=== PATIENT | female | born 1955 | race African-American/Black ===

== ENCOUNTER 2017-01-18 22:13 | Emergency (ER) | payer SELFPAY ==
[~2017-01-18] VITALS: Ht 165.1 cm; Wt 72.6 kg
[~2017-01-18 22:13] MED LIST: BACTRIM-DS1 EA ORAL; IBUPROFEN600 MG ORAL; PHENAZOPYRIDIN100 MG ORAL
[2017-01-18] MEDS ORDERED: NKM (23:18)
[2017-01-19] MEDS ORDERED: Ketorolac 60mg Inj IM ONE
[2017-01-19 00:12] LABS: APPEARANCE,URINE CLEAR; KETONES,URINE NEGATIVE (NEGATIVE); LEUKOCYTE ESTERASE ,URINE 1+ (NEGATIVE); NITRITE,URINE NEGATIVE (NEGATIVE); PH,URINE 7 (4.5-8.0); PROTEIN,URINE 1+ (NEGATIVE); UROBILINOGEN,URINE NORMAL MG/DL (0.0-1.0)
[2017-01-19 00:24] LABS: BACTERIA,URINE FEW /HPF; RBC,URINE 15-20 /HPF (0 - 2); SQUAMOUS EPITHELIAL CELL,UR MODERATE /LPF (NONE/OCC)
[2017-01-19 00:25] LABS: AMORPHOUS SEDIMENT,UR MODERATE /LPF
[2017-01-19] MEDS ORDERED: IBUPROFEN600 MG ORAL (00:49)
[2017-01-19] MEDS ORDERED: ACETAMINOPHEN-1 EAC1 ORAL (00:49)
[2017-01-19 00:53] VITALS: BP 131/77
--- NOTE | 2017-01-19 03:55 | Emergency Room Report ---
History of Present Illness General Chief Complaint: Pain Source: Patient Present Illness HPI Patient presents with complaints of left lower suprapubic abdominal discomfort Patient reports that she has history of fibroids Denies any fevers or chills Denies any dysuria frequency Denies any chest pain or shortness of breath Patient has had ultrasounds revealing the discomfort Rates the pain is 4/10 intermittent Denies any vaginal discharge Allergies: Coded Allergies: No Known Allergies (Unverified , 09/20/13) Patient History Past Medical History: see triage record Pertinent Family History: none Reviewed Nursing Documentation: PMH: Agreed, PSxH: Agreed Nursing Documentation-PMH Past Medical History: No Stated History Review of Systems All Other Systems: negative except mentioned in HPI Physical Exam Vital Signs Date Time Temp Pulse Resp B/P Pulse Ox O2 Delivery O2 Flow Rate FiO2 01/18/17 23:11 98.1 79 16 131/77 98 Room Air Sp02 EP Interpretation: reviewed, normal General Appearance: well appearing, no apparent distress Head: normocephalic, atraumatic Eyes: bilateral eye EOMI, bilateral eye PERRL ENT: hearing grossly normal, normal pharynx, TMs + canals normal, uvula midline Neck: full range of motion, supple, no meningismus, no bony tend Respiratory: lungs clear, normal breath sounds, no rhonchi, no respiratory distress, no retraction, no accessory muscle use Cardiovascular #1: normal peripheral pulses, regular rate, rhythm, no edema, no gallop, no JVD, no murmur Gastrointestinal: normal bowel sounds, soft, no mass, no organomegaly, non- distended, no guarding, no hernia, no pulsatile mass, no rebound, tenderness - Subjectively points to the left lower suprapubic region, no obvious rebound however and nonreproducible on palpation, Genitourinary: no CVA tenderness Musculoskeletal: normal inspection Neurologic: oriented x3, responsive, meter maintenance person III-XII nml as tested, motor strength/ tone normal, sensory intact Psychiatric: mood/affect normal Skin: normal color, no rash, warm/dry, palpation normal Lymphatic: normal inspection, no adenopathy Medical Decision Making Diagnostic Impression: Primary Impression: uterine fibroids ER Course Given the patient's history of uterine fibroids other differentials such as ovarian cyst ovarian torsion or entertained Urine sample at this time is negative for obvious infectious pathology appears to have been contaminated Patient's pain and presentation does not clinically appear to be in line with ovarian torsion patient rested very comfortably in the ER and stable for close outpatient followup Labs Test 01/18/17 23:50 Urine Color Pale yellow Urine Appearance Clear Urine pH 7 (4.5-8.0) Urine Specific [place] 1.005 (1.005-1.035) Urine Protein 1+ (NEGATIVE) Urine Glucose (UA) Negative (NEGATIVE) Urine Ketones Negative (NEGATIVE) Urine Occult Blood 4+ (NEGATIVE) Urine Nitrite Negative (NEGATIVE) Urine Bilirubin Negative (NEGATIVE) Urine Urobilinogen Normal MG/DL (0.0-1.0) Urine Leukocyte Esterase 1+ (NEGATIVE) Urine RBC 15-20 /HPF (0 - 2) Urine WBC 2-4 /HPF (0 - 2) Urine Squamous Epithelial Cells Moderate /LPF (NONE/OCC) Urine Amorphous Sediment Moderate /LPF (NONE) Urine Bacteria Few /HPF (NONE) Last Vital Signs Date Time Temp Pulse Resp B/P Pulse Ox O2 Delivery O2 Flow Rate FiO2 01/19/17 00:53 98.1 75 16 131/77 98 Room Air Status: improved Disposition: HOME, SELF-CARE Condition: Improved Scripts Acetaminophen With Codeine (T#3) (TYLENOL #3 TAB*) Y Tab 1 TAB ORAL Q8H Y for For Pain, #10 TAB Prov: LEVI MEYER D.O. 01/19/17 Ibuprofen* (MOTRIN*) 600 Mg Tablet 600 MG ORAL Q8H Y for For Pain, #30 TAB 0 Refills Prov: LEVI MEYER D.O. 01/19/17 Referrals: NON PHYSICIAN (PCP) Patient Instructions: Abdominal Pain, Adult, Uterine Fibroids Additional Instructions: Patient is provided with the discharge instructions notified to follow up with primary doctor in the next 2-3 days otherwise return to the er with any worsening symptoms. Please note that this report is being documented using [employer] technology. This can lead to erroneous entry secondary to incorrect interpretation by the dictating instrument. LEVI MEYER D.O. Jan 19, 2017 03:55
== END 2017-01-19 00:53 | disposition home or self-care (01) ==
LOC: EMR 23:31
DX: D25.9 Leiomyoma of uterus, unspecified (principal)
CPT/HCPCS: 81003; 96372; 99284

== ENCOUNTER 2017-09-19 20:26 | Emergency (ER) | payer BC ==
[~2017-09-19] VITALS: Ht 165.1 cm; Wt 68.5 kg
[~2017-09-19 20:26] MED LIST changes: +ACETAMINOPHEN-1 EAC1 ORAL; +NKM
[2017-09-19] MEDS ORDERED: IBUPROFEN600 MG ORAL (21:03)
[2017-09-19] MEDS ORDERED: NORCO 5-325 TA1 EACH ORAL (21:03)
[2017-09-19 21:07] VITALS: BP 104/63
--- NOTE | 2017-09-20 10:27 | Diagnostic Imaging Report ---
Indication: PAIN Technique: 3 views left foot Comparison: none Findings: No acute fractures. No dislocations. Unusual of the fifth proximal interphalangeal joint. Remaining joint spaces are normal Impression: No acute bony trauma Unusual widening of the fifth proximal interphalangeal joint, may indicate prior osteotomy. Correlate with surgical history
--- NOTE | 2017-09-20 12:34 | Diagnostic Imaging Report ---
Indication: PAIN Technique: 3 views of the left ankle Comparison: none Findings: There is an oblique fracture of the distal fibula which is nondisplaced. No tibial fracture demonstrated. There is minimal lateral soft tissue swelling. Small plantar spur noted. Impression: Positive for nondisplaced distal fibular fracture. Review of the electronic medical record indicates this was recognized by the ER physician
--- NOTE | 2017-09-21 06:46 | Emergency Room Report ---
History of Present Illness General Chief Complaint: Lower Extremity Injury Source: Patient Present Illness HPI 62-year-old female presents ED complaining of left ankle pain. States that tonight she rolled her ankle at home. Denies hitting her head or LOC. Patient persistent pain and swelling to the left ankle. Denies any other injuries. Pain is throbbing, 10 out of 10, nonradiating. Patient is unable to bear. No other of any relieving factors. Denies any other associated symptoms Allergies: Coded Allergies: No Known Allergies (Unverified , 09/20/13) Patient History Past Medical History: none Past Surgical History: none Pertinent Family History: none Social History: Denies: smoking, alcohol use, drug use Last Menstrual Period: NONE Now: No Immunizations: UTD Reviewed Nursing Documentation: PMH: Agreed, PSxH: Agreed Nursing Documentation-PMH Past Medical History: No Stated History Review of Systems All Other Systems: negative except mentioned in HPI Physical Exam Vital Signs Date Time Temp Pulse Resp B/P (MAP) Pulse Ox O2 Delivery O2 Flow Rate FiO2 09/19/17 20:28 98.1 93 18 104/63 98 Sp02 EP Interpretation: reviewed, normal General Appearance: no apparent distress, alert, GCS 15, non-toxic Head: normocephalic Eyes: bilateral eye normal inspection, bilateral eye PERRL ENT: normal ENT inspection Neck: normal inspection Respiratory: normal inspection Cardiovascular #1: normal inspection Gastrointestinal: normal inspection Rectal: deferred Genitourinary: no CVA tenderness Musculoskeletal: swelling, tender - L ankle Neurologic: alert, oriented x3, responsive, motor strength/tone normal, sensory intact, speech normal Psychiatric: judgement/insight normal, memory normal, mood/affect normal, no suicidal/homicidal ideation Skin: normal inspection Lymphatic: normal inspection Procedures Splinting Splinting : Consent: Verbal Splint: poserior short Pre-Proc Neuro Vasc Exam: normal Post-Proc Neuro Vasc Exam: normal Patient Tolerated: Well Complications: None Medical Decision Making Diagnostic Impression: Primary Impression: Fibula fracture Qualified Codes: S82.832A - Other fracture of upper and lower end of left fibula, initial encounter for closed fracture ER Course Hospital Course 62-year-old F presents to ED complaining of L ankle pain s/p trip and fall Differential diagnoses include: Fracture, dislocation, sprain, contusion Clinical course Patient placed on stretcher. After initial history and physical, I ordered pain medications and Xrays of L ankle Xrays prelim read shows distal fibula fx. placed in posterior splint, given crutches Diagnosis - distal fibula fx Stable and discharged to home with prescription for Motrin, Row[place]. apply ice, keep elevated. weight bear as tolerated. Followup with PMD. Return to ED if symptoms recur or worsen Other X-Ray Diagnostic Results Other X-Ray Diagnostic Results #1: X-Ray ordered: L ankle # of Views/Limited Vs Complete: 3 View Indication: Pain EP Interpretation: Yes Interpretation: no dislocation, no soft tissue swelling, other - L distal fibula fx Impression: Other - fx Electronically Signed by: Electronically signed by Connor Donato MD Other X-Ray Diagnostic Results #2: X-Ray ordered: L foot # of Views/Limited Vs Complete: 3 View Indication: Pain EP Interpretation: Yes Interpretation: no dislocation, no soft tissue swelling, no fractures Impression: No acute disease Electronically Signed by: Electronically signed by Connor Donato MD Last Vital Signs Date Time Temp Pulse Resp B/P (MAP) Pulse Ox O2 Delivery O2 Flow Rate FiO2 09/19/17 21:07 98.1 18 104/63 98 09/19/17 20:28 93 Status: improved Disposition: HOME, SELF-CARE Condition: Stable Scripts Hydrocodone Bit/Acetaminophen 5-325* (NORCO 5-325*) 1 Each Tablet 1 TAB ORAL Q6H Y for For Pain, #10 TAB 0 Refills Prov: CONNOR DONATO M.D. 09/19/17 Ibuprofen* (MOTRIN*) 600 Mg Tablet 600 MG ORAL Q8H Y for For Pain, #30 TAB 0 Refills Prov: CONNOR DONATO M.D. 09/19/17 Patient Instructions: Fibular Fracture With [facility] CONNOR DONATO M.D. Sep 21, 2017 06:46
== END 2017-09-19 21:44 | disposition home or self-care (01) ==
LOC: EMR 21:00
DX: S82.435A Nondisplaced oblique fracture of shaft of left fibula, initial encounter for closed fracture (principal); X50.1XXA Overexertion from prolonged static or awkward postures, initial encounter; Y92.019 Unspecified place in single-family (private) house as the place of occurrence of the external cause
CPT/HCPCS: 29515; 99284

== ENCOUNTER 2017-09-20 12:55 | Emergency (ER) | payer BC ==
[~2017-09-20] VITALS: Ht 172.7 cm; Wt 72.1 kg
[~2017-09-20 12:55] MED LIST changes: +NORCO 5-325 TA1 EACH ORAL
[2017-09-20 13:01] VITALS: BP 115/70
--- NOTE | 2017-09-20 13:41 | Emergency Room Report ---
History of Present Illness General Chief Complaint: General Complaint Source: Patient Present Illness HPI 62-year-old female presents to the emergency department requesting replacement of her splint for her left ankle. Patient was seen here in the emergency department yesterday and diagnosed with a distal fibula fracture and was placed in a short leg posterior which has become loose. Patient denies pain at this time she denies skin color changes to the toes. Patient denies numbness or tingling. She denies erythema or bleeding. Denies new trauma or fall. Allergies: Coded Allergies: No Known Allergies (Unverified , 09/20/13) Patient History Past Medical History: see triage record, old chart reviewed Past Surgical History: none Pertinent Family History: none Now: No Immunizations: UTD Reviewed Nursing Documentation: PMH: Agreed, PSxH: Agreed Nursing Documentation-PMH Past Medical History: No Stated History Review of Systems All Other Systems: negative except mentioned in HPI Physical Exam Vital Signs Date Time Temp Pulse Resp B/P (MAP) Pulse Ox O2 Delivery O2 Flow Rate FiO2 09/20/17 13:01 98.1 89 18 115/70 98 Room Air Sp02 EP Interpretation: reviewed, normal General Appearance: no apparent distress, alert, GCS 15, non-toxic Head: normocephalic, atraumatic Eyes: bilateral eye normal inspection, bilateral eye PERRL ENT: hearing grossly normal, normal voice Neck: full range of motion Respiratory: lungs clear, normal breath sounds, speaking full sentences Cardiovascular #1: regular rate, rhythm, normal capillary refill Musculoskeletal: back normal, gait/station normal, other - pt NVI, tender - lateral left ankle ttp, short leg posterior splint is on the left ankle, however lateral and medial sides exposed and pt has TTP. Neurologic: alert, oriented x3, responsive, motor strength/tone normal, sensory intact, speech normal Skin: normal color, no rash, warm/dry, well hydrated Medical Decision Making PA Attestation Dr. Mcclain is my supervising Physician whom patient management has been discussed with. Diagnostic Impression: Primary Impression: Fibula fracture Qualified Codes: S82.832A - Other fracture of upper and lower end of left fibula, initial encounter for closed fracture ER Course PT. presents for replacement of splint. was dx with fibular fx here in the ED yesterday. denies new trauma or fall. Ddx considered but are not limited to Fracture, dislocation, contusion, Sprain/ Strain/Spasm, compartment syndrome just to name a few Vital signs: are WNL, pt. is afebrile H&PE are most consistent with previously diagnosed distal fibula fracture with compromised splint. ORDERS: - X-ray none required at this time, pt. not having pain, no new trauma or fall. ED INTERVENTIONS: - Short Leg Posterior with stirrup Splint applied to the left ankle by radiology special procedure tech. Pt. remains neurovascularly intact. DISCHARGE: At this time pt. is stable for d/c to home. Will provide printed patient care instructions, and any necessary prescriptions. Care plan and follow up instructions have been discussed with the patient prior to discharge. Last Vital Signs Date Time Temp Pulse Resp B/P (MAP) Pulse Ox O2 Delivery O2 Flow Rate FiO2 09/20/17 13:01 98.1 89 18 115/70 98 Room Air Disposition: HOME, SELF-CARE Condition: Stable Referrals: MP BONILLA (PCP) Patient Instructions: Undisplaced Fibular Ankle Fracture Treated With Immobilization, Adult Additional Instructions: Take previously prescribed medications as directed. Follow up with a [employer] in 3-5 days, even if your symptoms have resolved. --Please review list of primary care clinics, if you do not already have a primary care provider Return sooner to ED if new symptoms occur, or current symptoms become worse. - Please note that this Emergency Department Report was dictated using [employer] technology software, occasionally this can lead to erroneous entry secondary to interpretation by the dictation equipment. Brittni Kathleen Sep 20, 2017 13:41
[2017-09-20 14:40] VITALS: BP 122/79
== END 2017-09-20 14:42 | disposition home or self-care (01) ==
LOC: EMR 13:30
DX: S82.492D Other fracture of shaft of left fibula, subsequent encounter for closed fracture with routine healing (principal); X58.XXXD Exposure to other specified factors, subsequent encounter
CPT/HCPCS: 29515; 99282